=== PATIENT | female | born 1995 ===

== ENCOUNTER 2021-11-30 22:51 | Emergency (ER) | payer OTHER ==
[~2021-11-30] VITALS: Ht 170.2 cm; Wt 70.8 kg
[2021-12-01] MEDS ORDERED: PEPCID AC20 MG PO (02:24)
== END 2021-12-01 02:38 | disposition home or self-care (01) ==
LOC: ER 22:51
DX: K29.70 Gastritis, unspecified, without bleeding (principal); Z88.6 Allergy status to analgesic agent